=== PATIENT | female | born 1990 | race Caucasian/White ===

== ENCOUNTER 2016-08-23 09:18 | Emergency (ER) | payer OTHER ==
[~2016-08-23] VITALS: Ht 152.4 cm; Wt 64.4 kg
[2016-08-23] MEDS ORDERED: PROMETHAZINE (09:31)
[2016-08-23] MEDS ORDERED: FEROSUL (09:31)
[2016-08-23] MEDS ORDERED: DOK (09:31)
[2016-08-23] MEDS ORDERED: PRENTAB29 (09:31)
[2016-08-23 10:14] LABS: BASO % 0.3 % (0.0-1.0); EOS # 0.1 K/mm3 (0.0-0.50); LARGE UNSTAINED CELL # 0.1 K/mm3 (0.0-0.4); LARGE UNSTAINED CELL % 1.4 % (0.0-4.0); LYMPH # 1.6 K/mm3 (1.5-6.5); LYMPH % 18.7 % (24.0-44.0); MEAN CORPUSCULAR HEMOGLOBIN 30.8 pg (27.0-33.0); MEAN CORPUSCULAR HGB CONC 33.9 g/dl (32.0-36.5); MEAN CORPUSCULAR VOLUME 90.9 fl (80.0-96.0); MONO # 0.4 K/mm3 (0.0-0.8); MONO % 5.1 % (0.0-5.0); NEUTROPHILS # 5.7 K/mm3 (1.8-7.7); NEUTROPHILS % 73.5 % (36.0-66.0); PLATELET COUNT, AUTOMATED 210 k/mm3 (150-450); RED CELL DISTRIBUTION WIDTH 12.8 % (11.5-14.5); WHITE BLOOD COUNT 7.8 K/mm3 (4.0-10.0)
[2016-08-23] MEDS ORDERED: ACETAMINOPHEN 325 MG TAB PO ONE (10:15)
[2016-08-23 10:51] LABS: ANION GAP 7 MEQ/L (8-16); BLOOD UREA NITROGEN 8 MG/DL (7-18); CALCIUM LEVEL 8.2 MG/DL (8.5-10.1); CARBON DIOXIDE LEVEL 25 MEQ/L (21-32); CHLORIDE LEVEL 106 MEQ/L (98-107); CREATININE FOR GFR 0.43 MG/DL (0.55-1.02); GLOMERULAR FILTRATION RATE > 60.0 (>60); GLUCOSE, FASTING 72 MG/DL (70-105); HCG, SERUM QUANTITATIVE 42619 MIU/ML; POTASSIUM SERUM 3.7 MEQ/L (3.5-5.1); SODIUM LEVEL 138 MEQ/L (136-145)
[2016-08-23 11:13] VITALS: BP 113/68
--- NOTE | 2016-08-23 11:31 | REP ---
OB ULTRASOUND: Real-time sonographic evaluation of the gravid uterus performed utilizing transabdominal technique. There is a single living intrauterine gestation with an estimated gestational age 16 weeks 3 days. EDC: 02/04/2017 Biometry and Growth: BPD 39 mm = 17 weeks 6 days, greater than 95th percentile HC 132 mm = 16 weeks 5 days, 63rd percentile AC 95 mm = 15 weeks, 5 days, 30th percentile FL 23 mm = 16 weeks 6 days, 63rd percentile HC/AC ratio 1.38 is above the normal range of 1.09 to 1.28. Estimated weight 152 grams, 40th percentile. Cervical length: Closed and measures 3 cm in length. heart rate: 155 beats per minute. stomach is visualized. The cranium appears intact. position: Vertex. Placenta: Anterior and there is no evidence of placental abruption. Amniotic fluid: Appears within normal limits for gestational age. Signed by George Acuna MD 08/23/2016 01:25 P
== END 2016-08-23 11:16 | disposition home or self-care (01) ==
LOC: M ED 09:53
DX: O26.892 Other specified pregnancy related conditions, second trimester (principal); Z87.891 Personal history of nicotine dependence; Z3A.16 16 weeks gestation of pregnancy